=== PATIENT | female | born 1995 | race Caucasian/White ===

== ENCOUNTER 2021-06-23 05:44 | Emergency (ER) | payer SELFPAY ==
[~2021-06-23] VITALS: Ht 165 cm; Wt 72.0 kg
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
[2021-06-23] MEDS ORDERED: CYCLOBENZAPRINE 10 MG (FLEXERIL) TAB PO STA (07:20)
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
[2021-06-23] MEDS ORDERED: ACHD5005 PO (07:27)
[2021-06-23] MEDS ORDERED: CYCL10TA25 PO (07:27)
[2021-06-23] MEDS ORDERED: HYDROcodone/APAP 5 MG/325 MG (LORTAB) TAB PO ONE (07:30)
[2021-06-23 07:39] VITALS: BP 116/90
== END 2021-06-23 07:38 | disposition home or self-care (01) ==
LOC: ER 05:51
DX: M54.2 Cervicalgia (principal); F17.210 Nicotine dependence, cigarettes, uncomplicated
CPT/HCPCS: 72125